=== PATIENT | male | born 1990 | race African-American/Black ===

== ENCOUNTER 2021-10-21 10:24 | Emergency (ER) | payer SELFPAY | END 2021-10-21 11:51 | disposition home or self-care (01) | LOC: CSHERS 10:24 | DX: I10 Essential (primary) hypertension (principal) | CPT/HCPCS: 99283 ==

== ENCOUNTER 2021-10-30 23:13 | Emergency (ER) | payer SELFPAY | END 2021-10-30 23:50 | disposition home or self-care (01) | LOC: CSHERS 23:13 | DX: R11.2 Nausea with vomiting, unspecified (principal); R19.7 Diarrhea, unspecified | CPT/HCPCS: 99283 ==